=== PATIENT | female | born 1950 | race Caucasian/White ===

== ENCOUNTER 2019-12-23 13:40 | Emergency (ER) | payer BC, SELFPAY ==
[2019-12-23 13:47] VITALS: BP 131/69; PULSE 80; RESP 16; TEMP 36.5; O2SAT 98
--- NOTE | 2019-12-23 14:15 | DI.CT_ITS ---
EXAM: CT ABDOMEN PELVIS W CLINICAL HISTORY: LLQ pain TECHNIQUE: Imaging Protocol: Axial computed tomography images with coronal and sagittal reformatted images were created and reviewed CONTRAST MATERIAL: Intravenous: Omnipaque 350 Contrast volume:100 mL Oral: No COMPARISON: No exams were available for comparison FINDINGS: ABDOMEN: Lung Bases: Trace atelectasis. Liver: Normal density. No measurable mass. Portal, Superior Mesenteric, and Splenic Veins: Unremarkable. Gallbladder and Biliary Tract: No radiodense calculus or dilation. Pancreas: Normal density, no abnormal calcifications or inflammatory process. Spleen: Normal. Adrenals: No masses seen. Kidneys: Normal size, contour and axis. No radiodense stones or obstructive uropathy. No masses seen. Abdominal Aorta: Abdominal portion non-dilated. Mild atherosclerosis. Bowel: There is colonic diverticulosis seen in the descending colon and sigmoid colon. There is arielle l wall thickening seen in the proximal sigmoid colon and distal descending colon with surrounding per icolonic inflammation. There is no evidence of obstruction. There is no evidence of acute appendici tis. There is a small hiatal hernia. Peritoneal Cavity: No abscess or free air. Lymph Nodes: Within normal limits. Bones: Degenerative changes are seen in the spine. There is L5 spondylolysis and grade 2 spondylolis thesis of L5 on S1. Soft Tissues: A small fat containing umbilical hernia. Iliac veins: There is decreased attenuation in the right internal iliac vein. This may represent ramone pacified blood but thrombus cannot be excluded. PELVIS: Bladder: Symmetric distention, no gross wall thickening. Reproductive Organs: Unremarkable as visualized. Lymph Nodes: Within normal limits. Bones: Please see above. IMPRESSION: 1. Findings consistent with acute descending and proximal sigmoid colon diverticulitis. No abscess o r free air. 2. Decreased attenuation in the right internal iliac vein. This may represent unopacified blood but thrombus cannot be excluded. Follow-up is recommended. RADIATION DOSE DELIVERED: 938.3mGy.cm Total DLP DATA REPOSITORY: All CT scans at this facility are submitted to the National Radiology Data Registry (NRDR) Dose Index Registry (DIR) with the [employer] (ACR). RADIATION OPTIMIZATION: All CT scans at this facility use at least one of these dose optimization te chniques: automated exposure control; mA and/or kV adjustment per patient size (includes targeted exa ms where dose is matched to clinical indication); or iterative reconstruction.
[2019-12-23 14:34] LABS: Abs Immature Grans 0.03 10^3/uL (0.0-0.06); Absolute Basophil Count 0.03 10^3/uL (0.0-0.2); Absolute Eosinophil Count 0.11 10^3/uL (0.0-0.7); Absolute Lymphocyte Count 1.11 10^3/uL (1.2-3.4); Absolute Neutrophil Count 7.37 10^3/uL (1.2-6.7); Basophils % 0.3; Eosinophils % 1.1; HCT 42.8 % (36.0-46.0); HGB 13.7 g/dL (11.2-15.7); Immature Grans % 0.3; Lymphocytes % 11.5; MCH 30.9 pg (27.0-33.0); MCV 96.6 fL (80-95); MPV 9.6 fL (8.0-11.0); Monocytes % 10.4; Neutrophils % 76.4; Nucleated RBC 0 %; Platelet Count 239 10^3/uL (130-400); RBC 4.43 10^6/uL (3.93-5.22); RDW 12.2 % (11.7-14.6); RDW-SD 43.3 fL; WBC 9.65 10^3/uL (4.4-10.8)
[2019-12-23] MEDS: Lactated Ringers 1,000 ML 125 ML IV (14:45)
[2019-12-23 14:47] LABS: ALT 42 U/L (14-59); AST 43 U/L (15-37); Albumin 3.8 g/dL (3.4-5.0); Alkaline Phosphatase 57 U/L (46-116); Anion Gap 8.1 mmol/L (3-11); BUN 17 mg/dL (7-18); Bilirubin, Total 0.6 mg/dL (0.2-1.0); CO2 29.9 mmol/L (21.0-32.0); CREATININE 0.98 mg/dL (0.55-1.02); Calcium 9.2 mg/dL (8.5-10.1); Chloride 100 mmol/L (98-107); Estimated GFR 56.27 (mL/min/1.73m2); Glucose 70 mg/dL (74-106); Lipase 145 U/L (73-393); Potassium 3.7 mmol/L (3.5-5.1); Sodium 138 mmol/L (136-145); Total Protein 7.3 g/dL (6.4-8.2)
[2019-12-23 14:50] LABS: Bilirubin Negative (Negative); Blood Negative (Negative); Clarity Sl Cloudy (Clear); Glucose Negative (Negative); Ketones Negative (Negative); Leukocyte Esterase Negative (Negative); Nitrite Negative (Negative); Specific Gravity 1.025 (1.005-1.025); Urobilinogen 0.2 EU/dL (Up TO 0.2)
--- NOTE | 2019-12-23 15:36 | W.ED.GENAD ---
Discharge Plan Disposition Patient Disposition: HOME Condition: Serious Discharge Details Chief Complaint: Abd Prob Clinical Impression: Diverticulitis Primary Care Provider: Shi,Local ED Provider: Addi Whitfield Home Meds and New Rx's Prescriptions: New amoxicillin-pot clavulanate [Augmentin] 875-125 mg tablet 1 tab PO TID Qty: 29 RF: 0 Continued levothyroxine 100 MCG recon soln 110 mcg PO DAILY RF: 0 Discontinued cephalexin 500 MG capsule 500 mg PO QID Qty: 40 RF: 0 Discharge Instructions Instructions: Diverticulitis (ED) Additional Instructions: Please allow for bowel rest over the next few days. Maintain a clear liquid diet today and tomorrow. You may advance her diet to bland foods as tolerated the following day. Please take antibiotic as prescribed. Please contact your primary care physician to arrange follow-up. Be sure to discuss incidental findings noted on your CT including mild scattered atherosclerosis and spinal spondylolysis/anterolisthesis. Return to the ER for any worsening or new concerning symptoms. Discharge Data Discharge Date/Time-TO BE ENTERED AT DEPARTURE: 12/23/19 17:19 Medical Decision Making 1541??69-year-old female here with left lower quadrant pain for the past 3 days with associated fever, tender to palpation left lower quadrant, concern for acute diverticulitis versus septic stone. Plan to obtain CT of the abdomen pelvis. Labs reviewed and nondiagnostic. Urinalysis reveals no blood. --CT abdomen pelvis was interpreted by radiology: Acute diverticulitis. Incidental findings noted. Copy of report was provided the patient. Patient to be started on Augmentin. Initial dose given here. Patient was advised to follow-up with her primary care physician and to return for any worsening or new concerning symptoms. Usual customary discharge instructions otherwise provided. HPI General Mode of arrival: ambulatory. Date/Time Provider Initiated Documentation: 12/23/19 14:22. Limitations to Documentation: no limitations. Information obtained by: patient. HPI Narrative: 69-year-old female presents with chief complaint of abdominal pain. Pain localized to left lower abdomen. Pain started 3 days ago and has persisted. Pain did initially improve with Aleve but has now returned. She has associated loose stool. Nonbloody. Denies urinary symptoms. Pain described as initially sharp and severe and more tender and now again sharp. Patient also with fever last night. No COVID-19 exposure or recent travel. Related Data Home Medications Medication Instructions Recorded Confirmed levothyroxine 110 mcg PO DAILY 01/29/16 01/29/16 amoxicillin-pot clavulanate 1 tab PO TID #29 tab 12/23/19 [Augmentin] Previous Rx's Medication Instructions Recorded amoxicillin-pot clavulanate 1 tab PO TID #29 tab 12/23/19 [Augmentin] General Stated Complaint: Abd Prob STEVAN: 3 Review of Systems All systems reviewed & are unremarkable except as noted in HPI and below Constitutional Constitutional: Reports fever(s) Cardiovascular Cardiovascular: Denies dyspnea Respiratory Respiratory: Denies cough and Denies dyspnea Gastrointestinal Gastrointestinal: Reports as per HPI and Reports abdominal pain [facility] Social History Smoking/Tobacco Use Status: Never Drug use: Never Substance use type: does not use Do you feel safe at home: Yes Do you feel safe in your relationship?: Yes Exam Const General: cooperative and no acute distress HENMT Mouth: moist mucous membranes Eyes Conjunctivae: normal conjunctivae Sclera: normal sclerae Neck Neck: trachea midline and supple Resp Auscultation: clear to auscultation bilaterally, no rales, no rhonchi and no wheezes Cardio Jugular venous pressure: no JVD Rate: regular rate and not tachycardic Rhythm: regular rhythm GI Palpation: soft, not firm, no guarding, no masses, not rigid and tender in the LLQ Back/Spine/Pelvis Back: no CVA tenderness Skin General skin exam: no rashes or lesions noted Neuro General: patient alert, patient awake, patient oriented x3 and tone normal Extrem General: no edema Psych Appearance: grossly normal Mental Status: mental status grossly normal Speech and Movement: speech and movement normal Course Vital Signs Vital signs: Vital Signs Temperature 36.5 C 12/23/19 13:47 Pulse 80 12/23/19 13:47 Respiratory Rate 16 12/23/19 13:47 Blood Pressure 131/69 12/23/19 13:47 Pulse Oximetry 98 12/23/19 13:47 Temperature 36.5 C 12/23/19 13:47 Temperature Source Temporal Artery Scan 12/23/19 13:47 Pulse 80 12/23/19 13:47 Respiratory Rate 16 12/23/19 13:47 Respiratory Effort Non-Labored 12/23/19 13:53 Blood Pressure 131/69 12/23/19 13:47 Blood Pressure Position Sitting 12/23/19 13:47 Pulse Oximetry 98 12/23/19 13:47 Oxygen Delivery Method Room Air 12/23/19 13:47 Oxygen Flow Rate 0 12/23/19 13:47 Pain Level 3 12/23/19 14:06 Lab/Test Results Lab/Test Results: Laboratory Tests Range/Units 12/23/19 12/23/19 12/23/19 14:00 14:00 14:00 WBC (4.4-10.8) 10^3/uL 9.65 RBC (3.93-5.22) 10^6/uL 4.43 Hgb (11.2-15.7) g/dL 13.7 Hct (36.0-46.0) % 42.8 MCV (80-95) fL 96.6 H MCH (27.0-33.0) pg 30.9 MCHC (32.0-36.0) % 32.0 RDW (11.7-14.6) % 12.2 Plt Count (130-400) 10^3/uL 239 MPV (8.0-11.0) fL 9.6 Immature Gran % 0.3 Neutrophils % 76.4 Lymphocytes % 11.5 Monocytes % 10.4 Eosinophils % 1.1 Basophils % 0.3 Nucleated RBC % % 0 Absolute Neutrophils (1.2-6.7) 10^3/uL 7.37 H Absolute Lymphocytes (1.2-3.4) 10^3/uL 1.11 L Absolute Monocytes (0.1-0.8) 10^3/uL 1.00 H Absolute Eosinophils (0.0-0.7) 10^3/uL 0.11 Absolute Basophils (0.0-0.2) 10^3/uL 0.03 Sodium (136-145) mmol/L 138 Potassium (3.5-5.1) mmol/L 3.7 Chloride (98-107) mmol/L 100 Carbon Dioxide (21.0-32.0) mmol/L 29.9 Anion Gap (3-11) mmol/L 8.1 BUN (7-18) mg/dL 17 Creatinine (0.55-1.02) mg/dL 0.98 Estimated GFR/1.73 m2 (mL/min/1.73m2) 56.27 Glucose (74-106) mg/dL 70 L Calcium (8.5-10.1) mg/dL 9.2 Total Bilirubin (0.2-1.0) mg/dL 0.6 AST (15-37) U/L 43 H ALT (14-59) U/L 42 Alkaline Phosphatase (46-116) U/L 57 Total Protein (6.4-8.2) g/dL 7.3 Albumin (3.4-5.0) g/dL 3.8 Lipase (73-393) U/L 145 Urine Color (Yellow) Yellow Urine Clarity (Clear) Sl cloudy Urine pH (5-8) 6.0 Ur Specific [place] (1.005-1.025) 1.025 Urine Protein (Negative) mg/dL Negative Urine Ketones (Negative) mg/dL Negative Urine Blood (Negative) Negative Urine Nitrite (Negative) Negative Urine Bilirubin (Negative) Negative Urine Urobilinogen (Up TO 0.2) EU/dL 0.2 Ur Leukocyte Esterase (Negative) Negative Urine Glucose (Negative) mg/dL Negative
[2019-12-23] MEDS: Omnipaque 350 MG/ML 100 ML BTL IJ (16:28)
[2019-12-23] MEDS: Normal Saline - Diluent 50 ML VIAL IV (16:29)
[2019-12-23] MEDS: Normal Saline Flush 10 ML SYR IVP (16:29)
--- NOTE | 2019-12-23 16:38 | DI.VRAD_ITS ---
PROCEDURE INFORMATION: Exam: CT Abdomen And Pelvis With Contrast Exam date and time: 12/23/2019 4:19 PM Age: 69 years old Clinical indication: Abdominal pain; Localized; Left lower quadrant (llq) TECHNIQUE: Imaging protocol: Computed tomography of the abdomen and pelvis with intravenous contrast. Contrast material: OMNIPAQUE 350; Contrast volume: 100 ml; Contrast route: INTRAVENOUS (IV); COMPARISON: No relevant prior studies available. FINDINGS: Liver: Normal. Gallbladder and bile ducts: Normal. Pancreas: Normal. Spleen: Normal. Adrenals: Normal. Kidneys and ureters: Normal. Stomach and bowel: The bowel is unobstructed and there is diffuse colonic diverticulosis. In the left lower abdomen at the level of distal descending colon there is focal thickening and hyperdensity of a colonic diverticulum with adjacent fatty stranding and adjacent circumferential colon wall thickening. These findings indicate acute diverticulitis. Appendix: No evidence of appendicitis. Intraperitoneal space: No pneumatosis intestinalis, pneumoperitoneum or ascites. Vasculature: Mild scattered atherosclerosis. Lymph nodes: No mesenteric, retroperitoneal or inguinal adenopathy. Bladder: Normal. Reproductive: Normal uterus and ovaries. Bones/joints: Bilateral L5 pars interarticularis defects with 1.4 cm anterolisthesis of L5 upon S1 with obliterated disc material. Soft tissues: No mass or hernia. IMPRESSION: 1. Acute uncomplicated left colonic diverticulitis. Follow-up should be performed to ensure complete resolution and exclude other disease which may be presently masked at this level. 2. Incidental findings including mild scattered atherosclerosis and bilateral L5 spondylolysis and 1.4 cm L5 anterolisthesis. Dictated and Authenticated by: Kike Blandon MD. Ordering:ENEDELIA Fontana MD
[2019-12-23 17:18] VITALS: BP 127/69; PULSE 78; RESP 16; TEMP 36.5; O2SAT 98
[2019-12-23] MEDS: Amoxicillin 875/Clav. 125 TAB PO (17:18)
--- NOTE | 2019-12-24 07:35 | NUR.NOTE ---
Referral to Care Management to establish Nursing Note:
--- NOTE | 2019-12-25 14:34 | W.ED.FU ---
Call from Dr. Jonas who overread CT of the abdomen pelvis from the and notes questionable filling defect right common iliac vein concern for thrombus versus contrast mixing. Recommends emergent repeat of CT with IV contrast. I called patient to recommend she come back to the emergency department. No answer. Voice message was left for her to call department as soon as possible.
--- NOTE | 2019-12-26 15:38 | CMPROGNOTE_ITS ---
- If Service Date Differs Date of service: 12/26/19 Time of Service: 15:38 Care Management Progress Note At the request of ED provider, CM coordinates referral to Dr. Fuentes, on-call provider, of [facility] to assist Ammy in obtaining a follow-up appointment and in establishing care with a local PCP.
== END 2019-12-23 17:19 | disposition home or self-care (01) ==
PROVIDERS: Emergency Provider Student in an Organized Health Care Education/Training Program
DX: K57.32 Diverticulitis of large intestine without perforation or abscess without bleeding (principal); R50.9 Fever, unspecified
CPT/HCPCS: 36415; 80053; 83690; 96360; 96361; 99285; 74177; 81003; 85025; 99284; J3490

== ENCOUNTER 2019-12-25 21:24 | Emergency (ER) | payer MEDICARE, SELFPAY ==
[2019-12-25 21:30] VITALS: BP 118/71; PULSE 62; RESP 16; TEMP 36.5; O2SAT 100
--- NOTE | 2019-12-25 21:30 | DI.CT_ITS ---
EXAM: CT ABDOMEN PELVIS W CLINICAL HISTORY: dx'd with diverticulitis ?ivc clot from earlier TECHNIQUE: Imaging Protocol: Axial computed tomography images with coronal and sagittal reformatted images were created and reviewed CONTRAST MATERIAL: Intravenous: Omnipaque 350 Contrast volume:99 mL Oral: No COMPARISON: CT CT ABDOMEN PELVIS W from 12/23/2019 FINDINGS: ABDOMEN: Lung Bases: Normal where visualized. Liver: Normal density. No measurable mass. Portal, Superior Mesenteric, and Splenic Veins: Unremarkable. Gallbladder and Biliary Tract: No radiodense calculus or dilation. Pancreas: Normal density, no abnormal calcifications or inflammatory process. Spleen: Normal. Adrenals: No masses seen. Kidneys: Normal size, contour and axis. No radiodense stones or obstructive uropathy. No masses seen. Abdominal Aorta: Abdominal portion non-dilated. Mild atherosclerosis. Bowel: There is again seen bowel wall thickening involving the descending and proximal sigmoid colon. There is surrounding inflammation. Diverticulosis is seen in the colon. The findings are consiste nt with acute diverticulitis. No evidence of acute appendicitis. No evidence of bowel obstruction. Peritoneal Cavity: No ascites, collection or mesenteric inflammatory response. Lymph Nodes: Within normal limits. Bones: Degenerative changes. L5 spondylolysis and grade 2 spondylolisthesis of L5 on S1. Soft Tissues: Unremarkable. Vasculature: Findings in the right common iliac vein likely reflect this phase of imaging with thromb us less likely. PELVIS: Bladder: Symmetric distention, no gross wall thickening. Reproductive Organs: Unremarkable as visualized. Lymph Nodes: Within normal limits. Bones: Degenerative changes. IMPRESSION: 1. Acute descending colon and sigmoid diverticulitis. No abscess or free air. 2. Findings in the right common iliac vein which may reflect the phase of imaging with thrombus less likely. Follow-up as clinically appropriate. RADIATION DOSE DELIVERED: 716.46mGy.cm Total DLP DATA REPOSITORY: All CT scans at this facility are submitted to the National Radiology Data Registry (NRDR) Dose Index Registry (DIR) with the [employer] (ACR). RADIATION OPTIMIZATION: All CT scans at this facility use at least one of these dose optimization te chniques: automated exposure control; mA and/or kV adjustment per patient size (includes targeted exa ms where dose is matched to clinical indication); or iterative reconstruction.
--- NOTE | 2019-12-25 21:45 | W.ED.GENAD ---
Discharge Plan Disposition Patient Disposition: HOME Condition: Stable Discharge Details Chief Complaint: Recheck Clinical Impression: Diverticulitis Primary Care Provider: Shi,Local ED Provider: Manuel Cerrato Home Meds and New Rx's Prescriptions: Continued levothyroxine 100 MCG recon soln 110 mcg PO DAILY RF: 0 amoxicillin-pot clavulanate [Augmentin] 875-125 mg tablet 1 tab PO TID Qty: 29 RF: 0 Discharge Instructions Additional Instructions: your cat scan showed improving diverticulitis and no evidence of blood clot follow up with your primary care provider within 1-2 weeks if you have severe worsening pain or difficulty breathing or feel more ill return to the emergency department Medical Decision Making 69 yo female who was seen 2 days ago and diagnosed with diverticulitis on CT and has been improving but on overread by radiologist today as possible right iliac vein thrombus vs artifact and advised repeat ct so was contacted to come in for this. ARrives ambulatory and feels well, no fevers, vomit or leg swelling. Given possible clot in the iliac vein will repeat ct with iv contrast and monitor. ct shows improving diverticulitis and no evidence of thrombosis and she feels well and comfortable with d/c. Return precautions given Differential Diagnosis Differential Diagnosis: ivc clot, artifact Medical Records Medical records reviewed: Yes I reviewed the patient's medical records. Imaging Data Radiologic Study: Attestation: I personally reviewed and interpreted this imaging study as follows: Imaging: CT Scan Radiologist's impression: IMPRESSION: 1. A slight improvement in moderate distal descending diverticulitis. 2. No evidence of deep venous thrombus. 3. Additional findings as described. HPI General Mode of arrival: ambulatory. Date/Time Provider Initiated Documentation: 12/25/19 21:25. Limitations to Documentation: no limitations. Information obtained by: patient. History of Present Illness 69 year old F presents to the emergency department with the chief complaint of left lower abdominal pain, described as mild, Patient started experiencing this day(s) (4) and it has been intermittent. No relieving factors improve symptom(s), No exacerbating factors reported . Patient notes no other symptoms.. Related Data Home Medications Medication Instructions Recorded Confirmed levothyroxine 110 mcg PO DAILY 01/29/16 12/25/19 amoxicillin-pot clavulanate 1 tab PO TID #29 tab 12/23/19 12/25/19 [Augmentin] Previous Rx's Medication Instructions Recorded amoxicillin-pot clavulanate 1 tab PO TID #29 tab 12/23/19 [Augmentin] Allergies Allergy/AdvReac Type Severity Reaction Status Date / Time No Known Allergies Allergy Unverified 12/25/19 21:33 General Stated Complaint: Recheck STEVAN: 4 Review of Systems All systems reviewed & are unremarkable except as noted in HPI and below Constitutional Constitutional: Denies chills, Denies fever(s) and Denies weakness Cardiovascular Cardiovascular: Denies chest pain and Denies dyspnea Respiratory Respiratory: Denies cough and Denies dyspnea Gastrointestinal Gastrointestinal: Denies vomiting Musculoskeletal Musculoskeletal: Denies joint swelling Neurologic Neurologic: Denies weakness Psychiatric Psychiatric: Denies depression [facility] Social History Smoking/Tobacco Use Status: Never Drug use: Never Substance use type: does not use Do you feel safe at home: Yes Do you feel safe in your relationship?: Yes Exam Const General: no acute distress Orientation: alert HENMT Head: normal to inspection Ears: external ears normal General nose exam: external nose normal Mouth: moist mucous membranes Eyes General: appearance normal, both eyes and all related structures Neck Neck: normal visual inspection Resp Effort & Inspection: normal respiratory effort and able to speak in complete sentences Cardio Rate: regular rate GI Palpation: nontender Skin General skin exam: no rashes or lesions noted Neuro General: patient alert and patient oriented x3 Extrem General: normal to inspection Psych Mental Status: mental status grossly normal Course Vital Signs Vital signs: Vital Signs Temperature 36.5 C 12/25/19 21:30 Pulse 62 12/25/19 21:30 Respiratory Rate 16 12/25/19 21:30 Blood Pressure 118/71 12/25/19 21:30 Pulse Oximetry 100 12/25/19 21:30 Temperature 36.5 C 12/25/19 21:30 Pulse 62 12/25/19 21:30 Respiratory Rate 16 12/25/19 21:30 Respiratory Effort Non-Labored 12/25/19 21:40 Blood Pressure 118/71 12/25/19 21:30 Blood Pressure Position Sitting 12/25/19 21:30 Pulse Oximetry 100 12/25/19 21:30 Oxygen Delivery Method Room Air 12/25/19 21:30 Oxygen Flow Rate 0 12/25/19 21:30 Pain Level 1 12/25/19 21:30
[2019-12-25] MEDS: Normal Saline - Diluent 50 ML VIAL IV (22:28)
[2019-12-25] MEDS: Omnipaque 350 MG/ML 100 ML BTL IJ (22:28)
[2019-12-25] MEDS: Normal Saline Flush 10 ML SYR IVP (22:29)
--- NOTE | 2019-12-25 22:45 | DI.VRAD_ITS ---
PROCEDURE INFORMATION: Exam: CT Abdomen And Pelvis With Contrast Exam date and time: 12/25/2019 22:13 Age: 69 years old Clinical indication: Abnormal findings; Abnormal radiologic finding of the abdomen; Radiologic exam and body structure: Abd and pelvis; Patient HX: HX of diverticulitis, improving with antibiotics, ? right iliac vein clot seen earlier; Additional info: Per radiologist decreased attenuation in the right internal iliac vein. This May represent unopacified blood but thrombus cannot be excluded. Follow-up is recommended. Please compare with prior images. TECHNIQUE: Imaging protocol: Computed tomography of the abdomen and pelvis with intravenous contrast. Radiation optimization: All CT scans at this facility use at least one of these dose optimization techniques: automated exposure control; mA and/or kV adjustment per patient size (includes targeted exams where dose is matched to clinical indication); or iterative reconstruction. Contrast material: OMNIPAQUE 350; Contrast volume: 99 ml; Contrast route: INTRAVENOUS (IV); COMPARISON: CT ABDOMEN PELVIS W 12/23/2019 16:20 FINDINGS: Liver: Focal fat in the liver near the fissure for the ligamentum teres. No hepatic masses. Gallbladder and bile ducts: No calcified stones. No ductal dilation. Pancreas: No ductal dilation. No masses. Spleen: No splenomegaly or focal lesions. Adrenals: No mass. Kidneys and ureters: Prominence of the right renal pelvis without calyceal dilation, favor benign extra-renal pelvis. No renal masses or hydronephrosis bilaterally. Stomach and bowel: A slight improvement in moderate distal descending diverticulitis. Descending and sigmoid diverticulosis. No focal pathology in the small bowel. Appendix: No evidence of appendicitis. Intraperitoneal space: No free air. No significant fluid collection. Vasculature: The IVC is distended. The iliac and common femoral veins demonstrate normal density for this phase of imaging. No evidence of a thrombus. No aortic aneurysm. Lymph nodes: No significantly enlarged lymph nodes. Bladder: Unremarkable as visualized. Reproductive: Unremarkable as visualized. Bones/joints: Degenerative changes in the hips and spine.Grade 2 anterolisthesis of L5 over S1 in the setting of pars defects. No acute fracture or subluxation. Soft tissues: No suspicious lesions. IMPRESSION: 1. A slight improvement in moderate distal descending diverticulitis. 2. No evidence of deep venous thrombus. 3. Additional findings as described. Dictated and Authenticated by: Jada Masterson MD. Ordering:HAYLEE Jackson MD
== END 2019-12-25 23:00 | disposition home or self-care (01) ==
LOC: ER 23:01
PROVIDERS: Emergency Provider Emergency Medicine
DX: K57.32 Diverticulitis of large intestine without perforation or abscess without bleeding (principal)
CPT/HCPCS: 99285; 74177; 99283; J3490